=== PATIENT | male | born 1945 | race Caucasian/White ===

== ENCOUNTER 2022-12-06 06:53 | Emergency (ER) | payer OTHER ==
[2022-12-06 06:59] VITALS: BMI 20.5
[2022-12-06] MEDS ORDERED: ASPIRIN 81 MG CHEWABLE TABLETS PO ONE (07:24)
[2022-12-06] MEDS ORDERED: ASPIRIN 325 MG TABLET PO ONE (07:26)
[2022-12-06] MEDS ORDERED: TICAGRELOR 60 MG TABLET PO ONE (07:27)
[2022-12-06] MEDS ORDERED: TICAGRELOR 90 MG TABLET PO ONE (07:29)
[2022-12-06] MEDS ORDERED: ASPIRIN 325 MG ENTERIC COATED TABLET (FP) ONE (07:29)
[2022-12-06] MEDS ORDERED: ACETAMINOPHEN 1000 MG/100 ML BAG IVPB ONE (07:34)
[2022-12-06 07:45] LABS: BASO % 0.8 % (0-2.0); EOS % 0.9 % (0-4.5); HEMATOCRIT 44.6 % (35.4-49); HEMOGLOBIN 15.1 GM/dL (11.7-16.9); LYMPH % 14.5 % (8-40); MCH 32.5 pg (25.7-33.7); MCHC 33.8 g/dl (32.0-35.9); MEAN CELL VOLUME 96.2 fl (80-96); MEAN PLT VOLUME 8.5 fl (7.5-11.1); MONO % 8.2 % (3.8-10.2); NEUT % 75.6 % (42.8-82.8); PLATELET COUNT 184 10^3/uL (134-434); RBC 4.64 M/mm3 (4.00-5.60); RDW 14.1 % (11.9-15.9); WHITE BLOOD COUNT 10.5 K/mm3 (4.0-10.0)
[2022-12-06] MEDS ORDERED: ACETAMINOPHEN INJECTION 100 ML IVPB ONE (07:46)
[2022-12-06 08:10] LABS: POTASSIUM 3.9 mmol/L (3.5-5.1)
[2022-12-06 08:13] LABS: ALBUMIN 3.8 g/dl (3.4-5.0); BLOOD UREA NITROGEN 23.4 mg/dL (7-18); CALCIUM 8.6 mg/dL (8.5-10.1)
[2022-12-06 08:16] LABS: CREATININE 1.2 mg/dL (0.55-1.3)
[2022-12-06 08:18] LABS: BILIRUBIN,TOTAL 0.5 mg/dL (0.2-1); TOT PROT 6.9 g/dl (6.4-8.2)
[2022-12-06] MEDS ORDERED: HEPARIN NA (PORCINE) 5,000 UNITS/ML 1ML VIAL IVPUSH PRN ×2 (08:18)
[2022-12-06] MEDS ORDERED: HEPARIN NA (PORCINE) 5,000 UNITS/ML 1ML VIAL IVPUSH ONE (08:18)
[2022-12-06] MEDS ORDERED: HEPARIN NA (PORCINE) 5,000 UNITS/ML 1ML VIAL ONE (08:27)
[2022-12-06] MEDS ORDERED: HEPARIN INFUSION - 25,000 UNITS/500 ML INFUS.BAG IVPB ONE (08:27)
[2022-12-06 08:30] LABS: INR 0.99 (0.83-1.09); PROTHROMBIN TIME (PATIENT) 11.5 SEC (9.7-13.0)
[2022-12-06] MEDS ORDERED: HEPARIN INFUSION - 25,000 UNITS/500 ML INFUS.BAG IVPB SCH (08:30)
[2022-12-06 08:33] LABS: ACTIVATED PTT 28.7 SECONDS (25.2-36.5)
[2022-12-06 08:45] VITALS: BP 117/77; PULSE 86; RESP 18; TEMP 97.8
== END 2022-12-06 08:50 | disposition short-term general hospital (02) ==
LOC: JER 06:53
PROC: 3E033NZ Introduction of Analgesics, Hypnotics, Sedatives into Peripheral Vein, Percutaneous Approach (ICD-10-PCS; principal; 2022-12-06)
PROC: 3E033GC Introduction of Other Therapeutic Substance into Peripheral Vein, Percutaneous Approach (ICD-10-PCS; 2022-12-06)
DX: R07.9 Chest pain, unspecified (principal); R06.02 Shortness of breath; I21.3 ST elevation (STEMI) myocardial infarction of unspecified site; Z20.822 Contact with and (suspected) exposure to COVID-19
CPT/HCPCS: 0241U-QW; 36415; 71045-TC-FY; 80053; 84484; 85025; 85610; 85730; 86850; 86900; 86901; 93005; 93010; 99291; J1644

== ENCOUNTER 2022-12-15 19:44 | Emergency (ER) | payer OTHER ==
[2022-12-15 19:52] VITALS: BP 108/65; PULSE 82; RESP 20; TEMP 97.9; BMI 20.7
== END 2022-12-15 21:14 | disposition home or self-care (01) ==
LOC: JER 19:44
DX: S60.221A Contusion of right hand, initial encounter (principal); W26.8XXA Contact with other sharp object(s), not elsewhere classified, initial encounter; Y92.009 Unspecified place in unspecified non-institutional (private) residence as the place of occurrence of the external cause
CPT/HCPCS: 99282-25